=== PATIENT | female | born 1955 | race Caucasian/White ===

== ENCOUNTER 2021-09-21 23:06 | Emergency (ER) | payer MEDICARE ==
[~2021-09-21] VITALS: Ht 172.7 cm; Wt 95.0 kg
[2021-09-21 23:06] VITALS: BP 155/72
--- NOTE | 2021-09-21 23:18 | PHYS DOC ---
Past History Past Medical History: Anxiety, Arthritis, Bronchitis Smoking: Cigarettes, Quit Less Than 1 Year General Adult EDM: Chief Complaint: COUGH HPI: HPI: "... I don't want any the labs.. or EKG.. or the CT... I will just see my out pt. doctor.. I wll do the breathing treatment... I just that I got so short breath tonight I got scared... .. " " I quit smoking at lst of Aug.. I ve only smoke maybe 7 yrs.. Patient is a 66 year old male who presents with above hx and complaints dyspnea and cough. Patient came in because she got very dyspneic at home after a coughing spell. Patient states in the past she has used her 's inhaler that seemed to help. Patient did agree to a chest x-ray. But refused other labs and CT to evaluate the pulmonary nodule. Patient also refusing EKG. patient refusing lab draws. Patient refusing further evaluation at this time. States she will follow-up with her primary care doctor. Patient has completed COVID vaccination and flu vaccination. Review of Systems: Review of Systems: Constitutional: Denies fever or chills Eyes: Denies change in visual acuity HENT: Denies nasal congestion or sore throat Respiratory: Complains of coughing spasms and shortness of breath Cardiovascular: Denies chest pain or edema GI: Denies abdominal pain, nausea, vomiting, bloody stools or diarrhea : Denies dysuria Musculoskeletal: Denies back pain or joint pain Integument: Denies rash Neurologic: Denies headache, focal weakness or sensory changes Endocrine: Denies polyuria or polydipsia Lymphatic: Denies swollen glands Psychiatric: Denies depression or anxiety Family History: Family History: Noncontributory to presentation Current Medications: Current Meds: See nursing for home meds Allergies: Allergies: Allergic to tetracycline Physical Exam: PE: Constitutional: no acute distress, non-toxic appearance. [] HENT: Normocephalic, atraumatic, bilateral external ears normal, oropharynx moist, no oral exudates, nose swollen turbinates clear rhinorrhea Eyes: PERRLA, EOMI, conjunctiva normal, no discharge. [] Neck: Normal range of motion, no tenderness, supple, no stridor. [] Cardiovascular:Heart rate regular rhythm, no murmur []. Bedside monitor shows a sinus rhythm, no acute ectopy. Lungs & Thorax: Bilateral breath sounds equal apex with scattered wheezes on auscultation []. Does have a nonproductive cough. Abdomen: Bowel sounds normal, soft, no tenderness, no masses, no pulsatile masses. Obese. Skin: Warm, dry, no erythema, no rash. [] Back: No tenderness, no CVA tenderness. [] Extremities: No tenderness, no cyanosis, no clubbing, ROM intact, no edema. No cording Neurologic: Alert and oriented X 3, normal motor function, normal sensory function, no focal deficits noted. [] Psychologic: Affect normal, judgement normal, mood normal. [] EKG: EKG: Patient refuses EKG [] Radiology/Procedures: Radiology/Procedures: [][place] [address] IMAGING REPORT Signed PATIENT: INDIRA LI ACCOUNT: [id number] : 1955 LOCATION: ER AGE: 66 SEX: F EXAM STATUS: REG ER ORD. PHYSICIAN: SENG RODRIGUEZ MD REASON: cough, PROCEDURE: CHEST AP ONLY EXAMINATION: Chest radiograph. VIEWS: 1 COMPARISON: None INDICATION:66 years, Female, cough. FINDINGS: Normal cardiomediastinal silhouette. Tortuous thoracic aorta. Ill-defined focal opacity in the left suprahilar lung measures 2.0 cm. No pleural effusion or pneumothorax. No acute osseous process. IMPRESSION: Ill-defined focal opacity in the left suprahilar lung measures 2.0 cm, could represent focal scar versus pulmonary nodule. Recommend further evaluation with CT chest to exclude neoplasm. Electronically signed by: Lindsay Blanco MD (09/21/2021 11:48 PM) [facility] DICTATED AND SIGNED BY: LINDSAY BLANCO MD DATE: 09/21/21 8486 CC: SENG RODRIGUEZ MD; BECKY SAENZ ~MTH0 [address] chest to evaluate pulmonary nodule. Heart Score: C/O Chest Pain: No HEART Score for Chest Pain: HEART Score for Chest Pain Response (Comments) Value History Slighlty/Non-Suspicious 0 ECG Nonspecific Repolarizatio 1 Age > 65 2 Risk Factors 1 or 2 Risk Factors 1 Total 4 Risk Factors: Risk Factors: DM, Current or recent (<one month) smoker, HTN, HLP, family history of CAD, obesity. Risk Scores: Score 0 - 3: 2.5% MACE over next 6 weeks - Discharge Home Score 4 - 6: 20.3% MACE over next 6 weeks - Admit for Clinical Observation Score 7 - 10: 72.7% MACE over next 6 weeks - Early Invasive Strategies Course & Med Decision Making: Course & Med Decision Making Pertinent Labs and Imaging studies reviewed. (See chart for details) Begged patient to reconsider her stance on no labs, no EKG, further evaluation of the chest x-ray. Advised patient should have follow-up promptly with her primary care and have the left hilar lung nodule 2 cm to be evaluated further. Patient use MDI 2 puffs 4 times a day. Advised patient old x-rays may be helpful evaluating lung lesion. Advised patient she will immediately 6-month follow-ups even if the lesion appears to be stable on CT. Advised patient to stop smoking. Patient return at any time if she wished to complete further evaluation. Patient warned that lesion may be a neoplasm or cancer. Impression: 1. Cough 2. Bronchitis 3. History of tobacco use x7 years 4. Left super hilar line nodule 2 cm [] Dragon Disclaimer: Dragon Disclaimer: This electronic medical record was generated, in whole or in part, using a voice recognition dictation system. Departure Departure: Referrals: BECKY SAENZ (PCP) [place] Disclaimer This chart was dictated in whole or in part using Voice Recognition software in a busy, high-work load, and often noisy Emergency Department environment. It may contain unintended and wholly unrecognized errors or omissions. Dragon Disclaimer This chart was dictated in whole or in part using Voice Recognition software in a busy, high-work load, and often noisy Emergency Department environment. It may contain unintended and wholly unrecognized errors or omissions. SENG RODRIGUEZ MD Sep 21, 2021 23:18
[2021-09-21] MEDS ORDERED: ALBUTEROL SULFATE 8GM INHALER. INH ONE (23:30)
[2021-09-21] MEDS ORDERED: IV RINGERS SOLUTION,LACTATED 1,000 ML IV SCH (23:45)
--- NOTE | 2021-09-21 23:50 | RAD ---
EXAMINATION: Chest radiograph. VIEWS: 1 COMPARISON: None INDICATION:66 years, Female, cough. FINDINGS: Normal cardiomediastinal silhouette. Tortuous thoracic aorta. Ill-defined focal opacity in the left s uprahilar lung measures 2.0 cm. No pleural effusion or pneumothorax. No acute osseous process. IMPRESSION: Ill-defined focal opacity in the left suprahilar lung measures 2.0 cm, could represent focal scar jonathon palak pulmonary nodule. Recommend further evaluation with CT chest to exclude neoplasm. Electronically signed by: Markos Blanco MD (09/21/2021 11:48 PM) [facility]
== END 2021-09-22 00:30 | disposition home or self-care (01) ==
LOC: ER 23:06
DX: J40 Bronchitis, not specified as acute or chronic (principal); R91.1 Solitary pulmonary nodule; M19.90 Unspecified osteoarthritis, unspecified site; Z87.891 Personal history of nicotine dependence; Z88.1 Allergy status to other antibiotic agents
CPT/HCPCS: 71045; 94640; 99283; 94664

== ENCOUNTER → 2021-10-04 | Outpatient (CLI) | payer MEDICARE ==
[2021-09-21 23:06] VITALS: BP 155/72
--- NOTE | 2021-10-04 16:05 | RAD ---
CT THORAX WO INDICATION: ABNORMAL CXR COMPARISON STUDY: Chest radiograph 09/21/2021. TECHNIQUE: Unenhanced axial images were obtained through the lungs and upper abdomen. Coronal and sa gittal multiplanar reconstructions were also obtained. PQRS compliance statement: One or more of the following individualized dose reduction techniques were utilized for this examinat ion: 1. Automated exposure control 2. Adjustment of the mA and/or kV according to patient size 3. Use of iterative reconstruction technique FINDINGS: Lungs and Airways: No pulmonary mass or consolidation. Left upper lobe 4 mm nodule (series 3 image 22 ). Normal central airways. Pleura: The pleural spaces are normal. Heart and Mediastinum: The visualized thyroid gland is normal in size and attenuation. No axillary or supraclavicular lymphadenopathy. No mediastinal, hilar or retrocrural lymphadenopathy. The heart and pericardium are within normal limits. No coronary artery calcifications. The great vessels of the th orax are normal. Abdomen: Cholecystectomy. Bones and Soft Tissues: Degenerative changes of the spine. Mild right convex thoracic curvature. IMPRESSION: 1. No pulmonary mass or thoracic lymphadenopathy. Previously seen left upper lung opacity probably re presented an infectious/inflammatory process. 2. Left upper lobe 4 mm nodule. Consider optional 12 month follow-up chest CT if patient has risk fac tors (history of smoking, history of malignancy, etc.). Electronically signed by: Syed Vargas MD (10/04/2021 4:03 PM) [id number]
== END ==
LOC: CT 10:12
PROVIDERS: ATTEND Family Medicine
DX: R91.1 Solitary pulmonary nodule (principal); R93.89 Abnormal findings on diagnostic imaging of other specified body structures; Z90.49 Acquired absence of other specified parts of digestive tract
CPT/HCPCS: 71250